=== PATIENT | female | born 1945 | race Caucasian/White ===

== ENCOUNTER 2016-08-31 08:17 | Outpatient (CLI) | payer MEDICARE, OTHER ==
[2016-08-31 12:10] LABS: ALBUMIN/GLOBULIN RATIO 1.3 (1.0-2.2); BILIRUBIN,TOTAL 0.7 mg/dL (0.2-1.0); BUN - BLOOD UREA NITROGEN 15 mg/dL (6-20); CALCIUM 9.3 mg/dL (8.5-10.3); CARBON DIOXIDE - CO2 34 mmol/L (21-32); CHLORIDE 96 mmol/L (101-111); CHOL/HDL RATIO 3.5 (<4.4); CHOLESTEROL 178 mg/dL; CREATININE 0.9 mg/dL (0.4-1.0); GFR - MDRD 62 (>89); GLUCOSE 107 mg/dL (70-100); HDL CHOLESTEROL 51 mg/dL; POTASSIUM 3.8 mmol/L (3.5-5.0); SODIUM 139 mmol/L (135-145); TOTAL PROTEIN 6.8 g/dL (6.7-8.2); TRIGLYCERIDES 117 mg/dL; VLDL CHOLESTEROL 23 mg/dL
== END 2016-08-31 08:18 | disposition home or self-care (01) ==
LOC: LAB.F 08:17
PROVIDERS: ATTEND Family Medicine
DX: E78.5 Hyperlipidemia, unspecified (principal)
CPT/HCPCS: 36415; 80053; 80061

== ENCOUNTER 2017-06-14 08:00 | Outpatient (CLI) | payer MEDICARE, OTHER ==
[2017-06-14 18:45] LABS: BASOPHILS # (AUTO) 0.1 10^3/uL (0.0-0.1); BASOPHILS % (AUTO) 0.8 %; EOSINOPHILS # (AUTO) 0.3 10^3/uL (0.0-0.7); EOSINOPHILS % (AUTO) 2.9 %; HGB - HEMOGLOBIN 13.4 g/dL (12.0-16.0); LYMPHOCYTES # (AUTO) 1.9 10^3/uL (1.5-3.5); LYMPHOCYTES % (AUTO) 17.5 %; MEAN CORPUSCULAR HEMOGLOBIN 30.8 pg (27.0-31.0); MEAN CORPUSCULAR HGB CONC 32.2 g/dL (32.0-36.0); MEAN CORPUSCULAR VOLUME 95.4 fL (81.0-99.0); MEAN PLATELET VOLUME 8.9 fL (7.9-10.8); MONOCYTES # (AUTO) 1.4 10^3/uL (0.0-1.0); NEUTROPHILS # (AUTO) 7.2 10^3/uL (1.5-6.6); NEUTROPHILS % (AUTO) 65.8 %; PLT - PLATELET COUNT 459 10^3/uL (130-450); RED BLOOD COUNT 4.34 10^6/uL (4.20-5.40); RED CELL DISTRIBUTION WIDTH 13.4 % (12.0-15.0)
== END 2017-06-14 08:01 | disposition home or self-care (01) ==
LOC: LAB.WCP 08:00
PROVIDERS: ATTEND Family Medicine
DX: I10 Essential (primary) hypertension (principal); J44.9 Chronic obstructive pulmonary disease, unspecified
CPT/HCPCS: 36415; 84443; 85025

== ENCOUNTER 2018-05-29 13:50 | Outpatient (CLI) | payer MEDICARE, OTHER ==
[2018-05-29 18:02] LABS: CHOL/HDL RATIO 3.2 (<4.4); CHOLESTEROL 184 mg/dL; HDL CHOLESTEROL 57 mg/dL; LDL CHOLESTEROL,CALCULATED 95 mg/dL; LDL/HDL RATIO 1.7 (<4.4); VLDL CHOLESTEROL 32 mg/dL
== END 2018-05-29 13:51 | disposition home or self-care (01) ==
LOC: LAB.F 13:50
PROVIDERS: ATTEND Internal Medicine Cardiovascular Disease
DX: I10 Essential (primary) hypertension (principal)
CPT/HCPCS: 36415; 80061; 83721

== ENCOUNTER 2018-08-26 09:23 | Outpatient (CLI) | payer MEDICARE, OTHER ==
[2018-08-26 18:05] LABS: BASOPHILS # (AUTO) 0.1 10^3/uL (0.0-0.1); BASOPHILS % (AUTO) 1.1 %; EOSINOPHILS # (AUTO) 0.4 10^3/uL (0.0-0.7); EOSINOPHILS % (AUTO) 3.7 %; HGB - HEMOGLOBIN 13.6 g/dL (12.0-16.0); LYMPHOCYTES # (AUTO) 1.9 10^3/uL (1.5-3.5); LYMPHOCYTES % (AUTO) 16.3 %; MEAN CORPUSCULAR HEMOGLOBIN 30.6 pg (27.0-31.0); MEAN CORPUSCULAR HGB CONC 30.1 g/dL (32.0-36.0); MEAN CORPUSCULAR VOLUME 101.8 fL (81.0-99.0); MEAN PLATELET VOLUME 11.5 fL (7.9-10.8); MONOCYTES # (AUTO) 1.4 10^3/uL (0.0-1.0); MONOCYTES % (AUTO) 11.6 %; NEUTROPHILS # (AUTO) 7.8 10^3/uL (1.5-6.6); NEUTROPHILS % (AUTO) 66.9 %; PLT - PLATELET COUNT 378 10^3/uL (130-450); RED BLOOD COUNT 4.44 10^6/uL (4.20-5.40); RED CELL DISTRIBUTION WIDTH 13.2 % (12.0-15.0); WHITE BLOOD COUNT 11.7 x10^3/uL (4.8-10.8)
[2018-08-26 18:24] LABS: BUN - BLOOD UREA NITROGEN 15 mg/dL (6-20); CALCIUM 9.2 mg/dL (8.5-10.3); CARBON DIOXIDE - CO2 28 mmol/L (21-32); CHLORIDE 99 mmol/L (101-111); CHOLESTEROL 121 mg/dL; CREATININE 0.9 mg/dL (0.4-1.0); GFR - MDRD 62 (>89); GLUCOSE 108 mg/dL (70-100); HDL CHOLESTEROL 61 mg/dL; LDL CHOLESTEROL,CALCULATED 46 mg/dL; LDL/HDL RATIO 0.8 (<4.4); SODIUM 139 mmol/L (135-145); VLDL CHOLESTEROL 14 mg/dL
== END 2018-08-26 09:24 | disposition home or self-care (01) ==
LOC: LAB.F 09:23
PROVIDERS: ATTEND Internal Medicine Cardiovascular Disease
DX: I10 Essential (primary) hypertension (principal)
CPT/HCPCS: 36415; 80048; 80061; 83721; 85025

== ENCOUNTER 2018-09-24 13:27 | Outpatient (CLI) | payer MEDICARE, OTHER ==
[2018-09-24 17:13] LABS: BASOPHILS # (AUTO) 0.1 10^3/uL (0.0-0.1); BASOPHILS % (AUTO) 0.9 %; EOSINOPHILS # (AUTO) 0.2 10^3/uL (0.0-0.7); HGB - HEMOGLOBIN 13.2 g/dL (12.0-16.0); LYMPHOCYTES # (AUTO) 2.2 10^3/uL (1.5-3.5); LYMPHOCYTES % (AUTO) 18.3 %; MEAN CORPUSCULAR HEMOGLOBIN 30.8 pg (27.0-31.0); MEAN CORPUSCULAR HGB CONC 30.6 g/dL (32.0-36.0); MEAN CORPUSCULAR VOLUME 100.7 fL (81.0-99.0); MEAN PLATELET VOLUME 11.8 fL (7.9-10.8); MONOCYTES # (AUTO) 1.1 10^3/uL (0.0-1.0); MONOCYTES % (AUTO) 9.7 %; NEUTROPHILS # (AUTO) 8.1 10^3/uL (1.5-6.6); NEUTROPHILS % (AUTO) 68.7 %; PLT - PLATELET COUNT 339 10^3/uL (130-450); RED BLOOD COUNT 4.29 10^6/uL (4.20-5.40); RED CELL DISTRIBUTION WIDTH 13.5 % (12.0-15.0); WHITE BLOOD COUNT 11.8 x10^3/uL (4.8-10.8)
== END 2018-09-24 13:28 | disposition home or self-care (01) ==
LOC: LAB.S 13:27
PROVIDERS: ATTEND Family Medicine
DX: R68.89 Other general symptoms and signs (principal); R79.89 Other specified abnormal findings of blood chemistry
CPT/HCPCS: 36415; 85025

== ENCOUNTER 2018-11-04 14:18 | Outpatient (CLI) | payer MEDICARE, OTHER ==
--- NOTE | 2018-11-05 08:52 | DEXA Report ---
Reason: POST MENOPAUSAL STATUS Procedure Date: 11/04/2018 Accession Number: [id number] / [id number] Procedure: DEX - Dexa Spine and/or Hip CPT Code: FULL RESULT: EXAM: Dexa Spine and/or Hip, Dexa Forearm DATE: 11/04/2018 3:33 PM CLINICAL HISTORY: POST MENOPAUSAL STATUS TECHNIQUE: Dual energy x-ray absorptiometry (DXA) was performed on a [employer] System. Regions measured are the AP Spine, femoral neck, and if needed forearm. COMPARISON: None. In accordance with the International Society for Clinical Densitometry (ISCD) guidelines, data from previous exams may be reanalyzed using current recommendations and techniques. This is done to allow a more accurate basis for comparison with the current study. FINDINGS: The data for the lumbar spine is as follows: BMD (g/cm/cm) T-SCORE Z-SCORE REGION L1 1.151 0.2 1.8 L2 1.425 1.9 3.5 L3 1.772 4.8 6.3 L4 1.354 1.3 2.9 TOTAL 1.429 2.1 3.7 NOTE: All evaluable vertebrae are used for classification The data for the hip is as follows: BMD (g/cm/cm) T-SCORE Z-SCORE REGION Neck 0.779 -1.9 -0.1 TOTAL 0.822 -1.5 0.1 NOTE: The femoral neck or total proximal femur, whichever is lowest, is used for classification. The data for the left forearm is as follows: BMD (g/cm/cm) T-SCORE Z-SCORE REGION 1/3 0.771 -1.2 0.9 NOTE: The 33% radius of the nondominant forearm is used for classification. IMPRESSION: THE WHO CLASSIFICATION BASED ON THE INTERNATIONAL REFERENCE STANDARD IS OSTEOPENIA. THE FRACTURE RISK IS INCREASED. RECOMMENDATION: Patients with diagnosis of osteoporosis or osteopenia should have regular bone mineral density assessment. For those eligible for Medicare, routine testing is allowed once every 2 years. Testing frequency can be increased for patients who have rapidly progressing disease or for those who are receiving medical therapy to restore bone mass. COMMENT: World Health Organization (WHO) definitions for osteoporosis and osteopenia: NORMAL BMD: T-score at -1.0 or higher, fracture risk is low OSTEOPENIA BMD: T-score between -1.0 and -2.5, fracture risk is increased. OSTEOPOROSIS BMD: T-score at -2.5 or lower, fracture risk is high. National Osteoporosis Foundation recommends: 1. Obtain adequate dietary calcium (at least 1200 mg per day) and vitamin D (400-800 international units per day). 2. Participate, as appropriate, in regular weightbearing and muscle-strengthening exercise. 3. Avoid tobacco use and reduce alcohol and caffeine intake. 4. For more detailed information see the website at www.NOF.org.
--- NOTE | 2018-11-05 08:52 | DEXA Report ---
Reason: post manopausal status Procedure Date: 11/04/2018 Accession Number: [id number] / [id number] Procedure: DEX - Dexa Forearm CPT Code: FULL RESULT: EXAM: Dexa Spine and/or Hip, Dexa Forearm DATE: 11/04/2018 3:33 PM CLINICAL HISTORY: POST MENOPAUSAL STATUS TECHNIQUE: Dual energy x-ray absorptiometry (DXA) was performed on a [employer] System. Regions measured are the AP Spine, femoral neck, and if needed forearm. COMPARISON: None. In accordance with the International Society for Clinical Densitometry (ISCD) guidelines, data from previous exams may be reanalyzed using current recommendations and techniques. This is done to allow a more accurate basis for comparison with the current study. FINDINGS: The data for the lumbar spine is as follows: BMD (g/cm/cm) T-SCORE Z-SCORE REGION L1 1.151 0.2 1.8 L2 1.425 1.9 3.5 L3 1.772 4.8 6.3 L4 1.354 1.3 2.9 TOTAL 1.429 2.1 3.7 NOTE: All evaluable vertebrae are used for classification The data for the hip is as follows: BMD (g/cm/cm) T-SCORE Z-SCORE REGION Neck 0.779 -1.9 -0.1 TOTAL 0.822 -1.5 0.1 NOTE: The femoral neck or total proximal femur, whichever is lowest, is used for classification. The data for the left forearm is as follows: BMD (g/cm/cm) T-SCORE Z-SCORE REGION 1/3 0.771 -1.2 0.9 NOTE: The 33% radius of the nondominant forearm is used for classification. IMPRESSION: THE WHO CLASSIFICATION BASED ON THE INTERNATIONAL REFERENCE STANDARD IS OSTEOPENIA. THE FRACTURE RISK IS INCREASED. RECOMMENDATION: Patients with diagnosis of osteoporosis or osteopenia should have regular bone mineral density assessment. For those eligible for Medicare, routine testing is allowed once every 2 years. Testing frequency can be increased for patients who have rapidly progressing disease or for those who are receiving medical therapy to restore bone mass. COMMENT: World Health Organization (WHO) definitions for osteoporosis and osteopenia: NORMAL BMD: T-score at -1.0 or higher, fracture risk is low OSTEOPENIA BMD: T-score between -1.0 and -2.5, fracture risk is increased. OSTEOPOROSIS BMD: T-score at -2.5 or lower, fracture risk is high. National Osteoporosis Foundation recommends: 1. Obtain adequate dietary calcium (at least 1200 mg per day) and vitamin D (400-800 international units per day). 2. Participate, as appropriate, in regular weightbearing and muscle-strengthening exercise. 3. Avoid tobacco use and reduce alcohol and caffeine intake. 4. For more detailed information see the website at www.NOF.org.
== END 2018-11-04 14:19 | disposition home or self-care (01) ==
LOC: DI 14:18
PROVIDERS: ATTEND Family Medicine
DX: M85.89 Other specified disorders of bone density and structure, multiple sites (principal); Z78.0 Asymptomatic menopausal state
CPT/HCPCS: 77080; 77081

== ENCOUNTER 2018-12-09 09:36 | Outpatient (CLI) | payer MEDICARE, OTHER ==
[2018-12-09 10:05] LABS: BASOPHILS # (AUTO) 0.1 10^3/uL (0.0-0.1); BASOPHILS % (AUTO) 0.9 %; CALCIUM 9.5 mg/dL (8.5-10.3); CREATININE 0.9 mg/dL (0.4-1.0); EOSINOPHILS # (AUTO) 0.2 10^3/uL (0.0-0.7); LYMPHOCYTES # (AUTO) 1.8 10^3/uL (1.5-3.5); MEAN CORPUSCULAR HEMOGLOBIN 31.6 pg (27.0-31.0); MEAN CORPUSCULAR HGB CONC 32.3 g/dL (32.0-36.0); MEAN CORPUSCULAR VOLUME 97.9 fL (81.0-99.0); MEAN PLATELET VOLUME 10.8 fL (7.9-10.8); MONOCYTES # (AUTO) 1.3 10^3/uL (0.0-1.0); MONOCYTES % (AUTO) 11.3 %; NEUTROPHILS # (AUTO) 7.9 10^3/uL (1.5-6.6); NEUTROPHILS % (AUTO) 69.2 %; PLT - PLATELET COUNT 347 10^3/uL (130-450); RED BLOOD COUNT 4.75 10^6/uL (4.20-5.40); RED CELL DISTRIBUTION WIDTH 13.8 % (12.0-15.0); WHITE BLOOD COUNT 11.4 x10^3/uL (4.8-10.8)
== END 2018-12-09 09:37 | disposition home or self-care (01) ==
LOC: LAB 09:36
PROVIDERS: ATTEND Internal Medicine Cardiovascular Disease
DX: I48.0 Paroxysmal atrial fibrillation (principal)
CPT/HCPCS: 36415; 80048; 85025

== ENCOUNTER 2019-10-14 08:00 | Outpatient (CLI) | payer MEDICARE, OTHER ==
[2019-10-14 11:38] LABS: ABNORMAL LYMPHS % (MANUAL) 0 %; BAND NEUTROPHILS % (MANUAL) 0 %
[2019-10-14 18:25] LABS: BASOPHILS % (AUTO) 0.8 %; EOSINOPHILS % (AUTO) 1.4 %; HGB - HEMOGLOBIN 14.9 g/dL (12.0-16.0); LYMPHOCYTES % (AUTO) 13.7 %; MEAN CORPUSCULAR HEMOGLOBIN 31.5 pg (27.0-31.0); MEAN CORPUSCULAR VOLUME 101.7 fL (81.0-99.0); MEAN PLATELET VOLUME 11.1 fL (7.9-10.8); MONOCYTES % (AUTO) 9.2 %; NEUTROPHILS % (AUTO) 74.4 %; PLT - PLATELET COUNT 394 10^3/uL (130-450); RED BLOOD COUNT 4.73 10^6/uL (4.20-5.40); RED CELL DISTRIBUTION WIDTH 13.2 % (12.0-15.0)
[2019-10-14 19:05] LABS: ALBUMIN 4.4 g/dL (3.2-5.5); ALBUMIN/GLOBULIN RATIO 1.4 (1.0-2.2); ALKALINE PHOSPHATASE 78 IU/L (42-121); ALT ALANINE AMINOTRANSFERASE 11 IU/L (10-60); AST ASPARTATE AMINOTRANSFERASE 15 IU/L (10-42); BILIRUBIN,TOTAL 0.3 mg/dL (0.2-1.0); BUN - BLOOD UREA NITROGEN 15 mg/dL (6-20); CALCIUM 9.6 mg/dL (8.5-10.3); CARBON DIOXIDE - CO2 32 mmol/L (21-32); CHLORIDE 100 mmol/L (101-111); CHOLESTEROL 134 mg/dL; CREATININE 0.8 mg/dL (0.4-1.0); GLUCOSE 103 mg/dL (70-100); HDL CHOLESTEROL 67 mg/dL; LDL CHOLESTEROL,CALCULATED 50 mg/dL; LDL/HDL RATIO 0.7 (<4.4); SODIUM 139 mmol/L (135-145); TOTAL PROTEIN 7.6 g/dL (6.7-8.2); VLDL CHOLESTEROL 17 mg/dL
[2019-10-14 20:56] LABS: LYMPHOCYTES % (MANUAL) 15 %
[2019-10-14 20:59] LABS: BASOPHILS # (MANUAL) 0.1 10^3/uL (0-0.1); BASOPHILS % (MANUAL) 1 %; EOSINOPHILS # (MANUAL) 0.2 10^3/uL (0-0.7); LYMPHOCYTES # (MANUAL) 1.8 10^3/uL (1.5-3.5); MONOCYTES # (MANUAL) 0.8 10^3/uL (0.0-1.0)
[2019-10-14 21:18] LABS: PLATELET MORPHOLOGY NORMAL APPEARANCE (NORMAL); RBC MORPHOLOGY (MULTIPLE) 1+ ANISOCYTOSIS (NORMAL)
[2019-10-14 21:19] LABS: DIFFERENTIAL COMMENT MANUAL DIFFERENTIAL; PLATELET ESTIMATE, MANUAL NORMAL (130-450,000) (NORMAL)
[2019-10-14 21:25] LABS: WHITE BLOOD COUNT 11.8 x10^3/uL (4.8-10.8)
== END 2019-10-14 23:59 | disposition home or self-care (01) ==
LOC: LAB.WCP 08:00
PROVIDERS: ATTEND Family Medicine
DX: I48.0 Paroxysmal atrial fibrillation (principal); E78.5 Hyperlipidemia, unspecified; R79.9 Abnormal finding of blood chemistry, unspecified
CPT/HCPCS: 36415; 80053; 80061; 83721; 85025

== ENCOUNTER 2019-11-19 11:21 | Outpatient (CLI) | payer MEDICARE, OTHER ==
--- NOTE | 2019-11-19 16:13 | XRAY Report ---
PROCEDURE: Knee 3 View BILAT INDICATIONS: OSTEOARTHRITIS, KNEES, BILATERAL TECHNIQUE: 4 views of the bilateral knee(s) were acquired. COMPARISON: None. FINDINGS: Bones: No fractures or dislocations. Severe right lateral femoral tibial compartment osteoarthritis is seen. Moderate left lateral femoral tibial compartment osteoarthritic changes also seen. Mild bila teral medial femoral tibial compartment osteoarthritis is also noted. No significant patellar subluxa tion. No suspicious bony lesions. Soft tissues: Moderate right suprapatellar joint effusion is seen. No suspicious soft tissue calcific ations. IMPRESSION: 1. Severe right lateral femoral tibial compartment osteoarthritis and moderate left lateral femoral t ibial compartment osteoarthritis. Mild bilateral medial femoral tibial compartment osteoarthritis. 2. Moderate right suprapatellar joint effusion. No fracture or dislocation. Reviewed by: Dada Gee MD on 11/19/2019 4:11 PM PDT Approved by: Dada Gee MD on 11/19/2019 4:11 PM PDT Station ID: [id number]
== END 2019-11-19 11:22 | disposition home or self-care (01) ==
LOC: DI 11:21
PROVIDERS: ATTEND Physician Assistant
DX: M17.0 Bilateral primary osteoarthritis of knee (principal); M25.461 Effusion, right knee

== ENCOUNTER 2019-12-24 09:21 | Outpatient (CLI) | payer MEDICARE, OTHER ==
[2019-12-24 15:34] LABS: BASOPHILS # (AUTO) 0.1 10^3/uL (0.0-0.1); EOSINOPHILS # (AUTO) 0.2 10^3/uL (0.0-0.7); HGB - HEMOGLOBIN 14.9 g/dL (12.0-16.0); LYMPHOCYTES # (AUTO) 1.5 10^3/uL (1.5-3.5); LYMPHOCYTES % (AUTO) 13.3 %; MEAN CORPUSCULAR HGB CONC 30.8 g/dL (32.0-36.0); MEAN CORPUSCULAR VOLUME 103.9 fL (81.0-99.0); MEAN PLATELET VOLUME 11.1 fL (7.9-10.8); MONOCYTES # (AUTO) 1.3 10^3/uL (0.0-1.0); MONOCYTES % (AUTO) 11.2 %; NEUTROPHILS # (AUTO) 8.1 10^3/uL (1.5-6.6); PLT - PLATELET COUNT 358 10^3/uL (130-450); RED BLOOD COUNT 4.65 10^6/uL (4.20-5.40); RED CELL DISTRIBUTION WIDTH 13.6 % (12.0-15.0); WHITE BLOOD COUNT 11.2 x10^3/uL (4.8-10.8)
[2019-12-24 15:54] LABS: BUN - BLOOD UREA NITROGEN 17 mg/dL (6-20); CALCIUM 9.5 mg/dL (8.5-10.3); CARBON DIOXIDE - CO2 36 mmol/L (21-32); CHLORIDE 95 mmol/L (101-111); CHOL/HDL RATIO 2.4 (<4.4); CHOLESTEROL 120 mg/dL; GLUCOSE 118 mg/dL (70-100); HDL CHOLESTEROL 51 mg/dL; LDL CHOLESTEROL,CALCULATED 51 mg/dL; SODIUM 141 mmol/L (135-145); VLDL CHOLESTEROL 18 mg/dL
== END 2019-12-24 09:22 | disposition home or self-care (01) ==
LOC: LAB.S 09:21
PROVIDERS: ATTEND Internal Medicine Cardiovascular Disease
DX: I10 Essential (primary) hypertension (principal)
CPT/HCPCS: 36415; 80048; 80061; 83721; 85025

== ENCOUNTER 2021-02-09 09:18 | Outpatient (CLI) | payer MEDICARE, OTHER ==
[2021-02-09 09:43] LABS: BASOPHILS # (AUTO) 0.1 10^3/uL (0.0-0.1); BASOPHILS % (AUTO) 0.9 %; EOSINOPHILS # (AUTO) 0.3 10^3/uL (0.0-0.7); EOSINOPHILS % (AUTO) 2.1 %; HCT - HEMATOCRIT 48.1 % (37.0-47.0); HGB - HEMOGLOBIN 15.3 g/dL (12.0-16.0); LYMPHOCYTES # (AUTO) 2.1 10^3/uL (1.5-3.5); LYMPHOCYTES % (AUTO) 15.7 %; MEAN CORPUSCULAR HEMOGLOBIN 32.8 pg (27.0-31.0); MEAN CORPUSCULAR HGB CONC 31.8 g/dL (32.0-36.0); MEAN CORPUSCULAR VOLUME 103.2 fL (81.0-99.0); MEAN PLATELET VOLUME 10.3 fL (7.9-10.8); MONOCYTES # (AUTO) 1.4 10^3/uL (0.0-1.0); MONOCYTES % (AUTO) 10.6 %; NEUTROPHILS # (AUTO) 9.2 10^3/uL (1.5-6.6); NEUTROPHILS % (AUTO) 70.4 %; PLT - PLATELET COUNT 403 10^3/uL (130-450); RED BLOOD COUNT 4.66 10^6/uL (4.20-5.40); RED CELL DISTRIBUTION WIDTH 12.7 % (12.0-15.0)
[2021-02-09 10:01] LABS: BUN - BLOOD UREA NITROGEN 19 mg/dL (6-20); CALCIUM 9.6 mg/dL (8.5-10.3); CARBON DIOXIDE - CO2 36 mmol/L (21-32); CHLORIDE 95 mmol/L (101-111); CHOL/HDL RATIO 2.2 (<4.4); CHOLESTEROL 123 mg/dL; CREATININE 0.9 mg/dL (0.4-1.0); GFR - MDRD 61 (>89); GLUCOSE 131 mg/dL (70-100); HDL CHOLESTEROL 55 mg/dL; LDL CHOLESTEROL,CALCULATED 48 mg/dL; LDL/HDL RATIO 0.9 (<4.4); POTASSIUM 4.1 mmol/L (3.5-5.0); SODIUM 142 mmol/L (135-145); TRIGLYCERIDES 99 mg/dL; VLDL CHOLESTEROL 20 mg/dL
== END 2021-02-09 09:19 | disposition home or self-care (01) ==
LOC: LAB 09:18
PROVIDERS: ATTEND Internal Medicine Cardiovascular Disease
DX: I10 Essential (primary) hypertension (principal); E78.5 Hyperlipidemia, unspecified
CPT/HCPCS: 36415; 80048; 80061; 83721; 85025

== ENCOUNTER 2022-11-28 11:46 | Inpatient (IN) | payer MEDICARE, OTHER ==
--- NOTE | 2022-11-28 11:58 | ED Physician Documentation ---
History of Present Illness - Stated complaint Stated Complaint: AMS/ SOA - Additonal information Additional information: 77-year-old female is brought to the emergency department for evaluation of altered mental status. Reportedly lives independently. Her son checks on her every 2 days. Her son saw her yesterday evening and said that she was not looking well and stated that she had fallen. He checked on her this morning and found that she was even worse. At that time he noted that she was listing to the left side, she had garbled speech and her left arm did not appear to be working. He reports to me he had a hard time calling EMS but his mom is a full DO NOT RESUSCITATE. No intubation, no CPR's and in the event of a serious massive stroke no transfer or neurosurgeryat her house he reported that she stated she had fallen. No formal POLST is in place Past medical history appears to be most significant for hypertension, A-fib and COPD. Med list includes Eliquis, metoprolol, diltiazem, fluticasone and albuterol inhalers. EMS reports that on scene the patient was alert and talking though appeared to be moving her left side abnormally and listing to the left side. Blood glucose was 163. By the time she presented to the emergency department she is now non verbal. Left upper extremity appears to be contracted or posturing. no obvious facial droop, though there is bruising on left face. She is protecting her airway. Room air sats 99% on 4 L nasal cannula. No respiratory distress. Review of Systems Unable to obtain: Other PD PAST MEDICAL HISTORY - Present Medications Home Medications: Ambulatory Orders Medication Instructions Recorded Confirmed Apixaban [Eliquis] 5 mg PO BID 11/28/22 Metoprolol/Hydrochlorothiazide 100 mg PO BID 11/28/22 [Metoprolol-Hctz 100-50 mg Tab] dilTIAZem HCL [Diltiazem 24Hr ER] 240 mg PO DAILY 11/28/22 - Allergies Allergies/Adverse Reactions: Allergies Allergy/AdvReac Type Severity Reaction Status Date / Time No Known Drug Allergies Allergy Verified 11/28/22 12:06 PD ED PE EXPANDED - General General: Disheveled, poorly kept, Lethargic - Eyes Eyes: PERRL, Other (bruising left face) - Cardiac Cardiac: Irregularly irregular, Murmur Present, Prolonged cap refill (4), Other (cool extremities 1+ pulses X4 extremities) - Respiratory Respiratory: No: Clear to ausultation eduardo, Distress, Labored - Abdomen Abdomen: No: Tender to palpation - Derm Derm: Normal color, Warm and dry, Bruising (left face) - Neuro Neuro: Other (eyes open, + gag. Localizes with right arm; left arm contracted ? decorticate posturing. absent speech; no obvious facial droop) - GCS Eye Opening: Spontaneous Motor: Localizes to Pain Verbal: None Total: 10 Results - Vitals Vitals: Vital Signs - 24 hr 11/28/22 11/28/22 11/28/22 11:55 12:05 13:05 Temperature 36.3 C L Heart Rate 109 H 75 70 Respiratory 22 24 Rate Blood Pressure 144/64 H 132/53 H O2 Saturation 99 98 If not protocol 4 : Oxygen Flow, liters/minute 11/28/22 11/28/22 13:10 13:25 Temperature Heart Rate 69 68 Respiratory 21 Rate Blood Pressure 148/62 H O2 Saturation 77 L 100 If not protocol 4 15 : Oxygen Flow, liters/minute Oxygen O2 Source Non-rebreather mask - EKG (time done) 1310 EKG releavant findings:: EKG personally interpreted by author of this note. Relevant findings are: Rate: Rate (enter#) (69) Rhythm: Atrial fibrillation [place]: RAD Intervals: No: Prolonged QT Ischemia: Non specific changes Compare to prior EKG: Old EKG unavailable Computer interpretation: Agree with computer - Labs Labs: Laboratory Tests 11/28/22 11/28/22 11/28/22 12:15 12:15 12:15 WBC RBC Hgb Hct MCV MCH MCHC RDW Plt Count MPV Neut # (Auto) Lymph # (Auto) [place] # (Auto) Eos # (Auto) Baso # (Auto) Absolute Nucleated RBC Nucleated RBC % PT 11.1 INR 1.0 Bld Gas Analysis Time Sample Site ABG pH ABG pCO2 ABG pO2 ABG HCO3 ABG Total CO2 ABG O2 Saturation ABG Base Excess [place]ñito Test O2 Delivery Device O2 Liters/Min Sodium 144 Potassium 4.2 Chloride 98 L Carbon Dioxide 41 H* Anion Gap 5.0 L BUN 37 H Creatinine 1.2 Estimated GFR (MDRD) 44 L Glucose 176 H Lactic Acid Calcium 9.3 Phosphorus 5.9 H Magnesium 2.3 Total Bilirubin 0.3 AST 80 H ALT 138 H Alkaline Phosphatase 171 H Total Protein 6.9 Albumin 4.1 Globulin 2.8 Albumin/Globulin Ratio 1.5 Lipase 10 L Urine Color Urine Clarity Urine pH Ur Specific [place] Urine Protein Urine Glucose (UA) Urine Ketones Urine Occult Blood Urine Nitrite Urine Bilirubin Urine Urobilinogen Ur Leukocyte Esterase Urine RBC Urine WBC Ur Squamous Epith Cells Urine Bacteria Urine Casts Ur Microscopic Review Urine Culture Comments Urine Opiates Screen Ur Oxycodone Screen Urine Methadone Screen Ur Propoxyphene Screen Ur Barbiturates Screen Ur Tricyclics Screen Ur Phencyclidine Scrn Ur Amphetamine Screen U Methamphetamines Scrn U Benzodiazepines Scrn Urine Cocaine Screen U Cannabinoids Screen 11/28/22 11/28/22 11/28/22 12:20 12:21 13:26 WBC 13.1 H RBC 4.69 Hgb 15.0 Hct 51.6 H MCV 110.0 H MCH 32.0 H MCHC 29.1 L RDW 14.0 Plt Count 348 MPV 10.4 Neut # (Auto) 11.1 H Lymph # (Auto) 0.6 L [place] # (Auto) 1.2 H Eos # (Auto) 0.0 Baso # (Auto) 0.1 Absolute Nucleated RBC 0.02 Nucleated RBC % 0.2 PT INR Bld Gas Analysis Time Sample Site ABG pH ABG pCO2 ABG pO2 ABG HCO3 ABG Total CO2 ABG O2 Saturation ABG Base Excess [place] Test O2 Delivery Device O2 Liters/Min Sodium Potassium Chloride Carbon Dioxide Anion Gap BUN Creatinine Estimated GFR (MDRD) Glucose Lactic Acid 1.9 Calcium Phosphorus Magnesium Total Bilirubin AST ALT Alkaline Phosphatase Total Protein Albumin Globulin Albumin/Globulin Ratio Lipase Urine Color YELLOW Urine Clarity CLEAR Urine pH 5.0 Ur Specific [place] >=1.030 H Urine Protein 100 H Urine Glucose (UA) NEGATIVE Urine Ketones NEGATIVE Urine Occult Blood NEGATIVE Urine Nitrite NEGATIVE Urine Bilirubin NEGATIVE Urine Urobilinogen 1 (NORMAL) Ur Leukocyte Esterase NEGATIVE Urine RBC None Seen Urine WBC 0-3 Ur Squamous Epith Cells RARE Squamous Urine Bacteria Rare Urine Casts 0-2 Hyaline Casts Ur Microscopic Review INDICATED Urine Culture Comments NOT INDICATED Urine Opiates Screen NEGATIVE Ur Oxycodone Screen NEGATIVE Urine Methadone Screen NEGATIVE Ur Propoxyphene Screen NEGATIVE Ur Barbiturates Screen NEGATIVE Ur Tricyclics Screen NEGATIVE Ur Phencyclidine Scrn NEGATIVE Ur Amphetamine Screen NEGATIVE U Methamphetamines Scrn NEGATIVE U Benzodiazepines Scrn NEGATIVE Urine Cocaine Screen NEGATIVE U Cannabinoids Screen NEGATIVE 11/28/22 13:40 WBC RBC Hgb Hct MCV MCH MCHC RDW Plt Count MPV Neut # (Auto) Lymph # (Auto) [place] # (Auto) Eos # (Auto) Baso # (Auto) Absolute Nucleated RBC Nucleated RBC % PT INR Bld Gas Analysis Time 1351 Sample Site LEFT RADIAL ABG pH 7.10 L* ABG pCO2 147 H* ABG pO2 223 H* ABG HCO3 44.8 H ABG Total CO2 49.3 H* ABG O2 Saturation 99 H ABG Base Excess 9.1 H [place] Test POSITIVE O2 Delivery Device NON REBREATHER MASK O2 Liters/Min 15.00 Sodium Potassium Chloride Carbon Dioxide Anion Gap BUN Creatinine Estimated GFR (MDRD) Glucose Lactic Acid Calcium Phosphorus Magnesium Total Bilirubin AST ALT Alkaline Phosphatase Total Protein Albumin Globulin Albumin/Globulin Ratio Lipase Urine Color Urine Clarity Urine pH Ur Specific [place] Urine Protein Urine Glucose (UA) Urine Ketones Urine Occult Blood Urine Nitrite Urine Bilirubin Urine Urobilinogen Ur Leukocyte Esterase Urine RBC Urine WBC Ur Squamous Epith Cells Urine Bacteria Urine Casts Ur Microscopic Review Urine Culture Comments Urine Opiates Screen Ur Oxycodone Screen Urine Methadone Screen Ur Propoxyphene Screen Ur Barbiturates Screen Ur Tricyclics Screen Ur Phencyclidine Scrn Ur Amphetamine Screen U Methamphetamines Scrn U Benzodiazepines Scrn Urine Cocaine Screen U Cannabinoids Screen - Rads (name of study) cervical ct Relevant Findings:: Final report received (No displaced fracture or traumatic subluxation) Ct head Relevant Findings:: Final report received (Trace intraparenchymal focus of hyperattenuation within the right temporal lobe. Findings probably represent a vascular calcification less likely focus of hemorrhage given location. Consider 4 to 6-hour follow-up with CT.) cxr Relevant Findings:: Final report received (Mild congestive heart failure) PD Medical Decision Making - ED course Complexity details: reviewed results, re-evaluated patient, d/w patient, d/w family ED course: 77-year-old female is brought to the emergency department for evaluation of altered mental status. The patient was last known normal on Saturday evening. When patient's son checked on her yesterday she reported that she had fallen. At that time the son reports that she did not seem normal and may not have been moving her left side well. When he rechecked on her this morning she was even more altered and had difficulty speaking thus she was transported to the ER. On she does have a history of atrial fib on Eliquis as well as hypertension and COPD. Presentation the emergency department she opens her eyes but will not follow commands. She does localize strongly with the right arm. The left arm remains in flexion or perhaps decorticate posturing but with extremely noxious stimuli such as suctioning she will attempt to grab the suction catheter. She presented here afebrile. Heart rate was A-fib rate of 68. We will 48/62 was her blood pressure. Her saturations were on 4 L nasal cannula saturating 100%. I did obtain CBC electrolytes. Per my interpretation mild leukocytosis white count of 13,000. Normal hemoglobin. Her electrolytes revealed a sodium of 144 and a K of 4.2. Her carbon dioxide was elevated at 41. BUN of 37 and a creatinine of 1.2 historically her BUN and creatinine are normal at 15 and 0.9. She does have some AST ALT abnormalities with AST 138 and ALT of 171. Bilirubin is not elevated. Lipase is normal. UA shows no signs of infection. MUDS was negative Her ABG reveals pH of 7.1 with a CO2 of 144. PaO2 is 226. This was obtained on nonrebreather. Given the CO2 retention she will be started on BiPAP. CT of the head showed no acute findings though there was question of a right temporal calcification that could be a vascular calcification less likely bleed. CT of the cervical spine was negative. Chest x-ray suggested some mild heart failure. An MRI has been ordered for follow-up of what I believed to be an acute stroke. Unfortunately given the patient's need for BiPAP this will not be able to be completed until she has been weaned from the BiPAP. However her son has reiterated to me that he wishes for his mom to be a DO NOT RESUSCITATE, no transfer, no intubation and no CPR. Subsequently it appears that this 77-year-old lady has a history of hypertension A-fib anticoagulated on Eliquis has acutely altered mental status and metabolic encephalopathy that may be due to CVA and/or CO2 retention. I spoke with Dr. Melissa Richard who will admit her to the ICU. 1415: About 5 minutes after the patient had BiPAP placed she became suddenly awake moving all extremities normally with no focal deficits. This was communicated with Dr. Richard Departure - Departure Disposition: 66 [facility] DC/Xfer Clinical Impression: AMS (altered mental status), History of atrial fibrillation, Elevated carbon dioxide level, History of COPD, Stroke-like symptom Discharge Date/Time: 11/28/22 16:14
--- NOTE | 2022-11-28 12:30 | XRAY Report ---
PROCEDURE: Chest 1 View X-Ray INDICATIONS: chest pain TECHNIQUE: One view of the chest was acquired. COMPARISON: 09/09/2013. FINDINGS: Surgical changes and devices: None. Lungs and pleura: No pleural effusions or pneumothorax. Mild interstitial pulmonary edema. Mediastinum: Mediastinal contours appear normal. Cardiomegaly Bones and chest wall: No suspicious bony lesions. Overlying soft tissues appear unremarkable. IMPRESSION: Mild congestive heart failure. Reviewed by: Peter Perry MD on 11/28/2022 12:29 PM PDT Approved by: Peter Perry MD on 11/28/2022 12:29 PM PDT Station ID: [id number]
[2022-11-28 12:33] LABS: PT - PROTHROMBIN TIME 11.1 secs (9.9-12.6)
[2022-11-28 12:37] LABS: ALBUMIN 4.1 g/dL (3.2-5.5)
[2022-11-28 12:44] LABS: BASOPHILS # (AUTO) 0.1 10^3/uL (0.0-0.1); BASOPHILS % (AUTO) 0.5 %; HCT - HEMATOCRIT 51.6 % (37.0-47.0); LYMPHOCYTES # (AUTO) 0.6 10^3/uL (1.5-3.5); LYMPHOCYTES % (AUTO) 4.5 %; MEAN CORPUSCULAR HGB CONC 29.1 g/dL (32.0-36.0); MEAN PLATELET VOLUME 10.4 fL (7.9-10.8); MONOCYTES # (AUTO) 1.2 10^3/uL (0.0-1.0); MONOCYTES % (AUTO) 9.5 %; NEUTROPHILS # (AUTO) 11.1 10^3/uL (1.5-6.6); NEUTROPHILS % (AUTO) 84.8 %; NRBC ABSOLUTE COUNT (AUTO) 0.02 x10^3/uL; NUCLEATED RED BLOOD CELLS AUTO 0.2 /100WBC; PLT - PLATELET COUNT 348 10^3/uL (130-450); RED BLOOD COUNT 4.69 10^6/uL (4.20-5.40); WHITE BLOOD COUNT 13.1 x10^3/uL (4.8-10.8)
[2022-11-28 12:46] LABS: POTASSIUM 4.2 mmol/L (3.5-4.5)
[2022-11-28 12:56] LABS: ALBUMIN/GLOBULIN RATIO 1.5 (1.0-2.2); BILIRUBIN,TOTAL 0.3 mg/dL (0.2-1.0); CALCIUM 9.3 mg/dL (8.5-10.3); CREATININE 1.2 mg/dL (0.6-1.3); TOTAL PROTEIN 6.9 g/dL (6.4-8.9)
[2022-11-28 13:34] LABS: MUDS CUTOFF CONCENTRATIONS CUTOFF CONC BELOW:
[2022-11-28 13:40] LABS: BILIRUBIN,URINE NEGATIVE (NEGATIVE); GLUCOSE, URINE (UA) NEGATIVE (NEGATIVE); KETONES,URINE (UA) NEGATIVE (NEGATIVE); LEUKOCYTE ESTERASE, URINE NEGATIVE (NEGATIVE); NITRITE,URINE NEGATIVE (NEGATIVE); OCCULT BLOOD,URINE NEGATIVE (NEGATIVE); PROTEIN,URINE 100 mg/dL (NEGATIVE); UROBILINOGEN,URINE 1 (NORMAL) E.U./dL (NORMAL)
[2022-11-28 13:51] LABS: ABG BASE EXCESS 9.1 mmol/L (-2.0-3.0); ABG HCO3 44.8 mmol/L (22.0-26.0)
[2022-11-28 13:52] LABS: ABG OXYGEN SATURATION 99 % (94-98); ALLEN TEST POSITIVE
[2022-11-28 13:55] LABS: ABG PCO2 147 mmHg (34-45); ABG PO2 223 mmHg (80-100); ABG TCO2 49.3 MMOL/L (21.0-29.0)
[2022-11-28 13:57] LABS: CLARITY,URINE CLEAR (CLEAR)
[2022-11-28] MEDS ORDERED: ONDANSETRON 4 MG/2 ML VIAL IVP PRN (14:00)
[2022-11-28] MEDS ORDERED: SODIUM CHLORIDE FLUSH 0.9% 10 ML SYRINGE IVP PRN (14:00)
[2022-11-28] MEDS ORDERED: ONDANSETRON ODT 4 MG TABLET TL PRN (14:00)
[2022-11-28 14:02] LABS: AMPHETAMINE SCREEN,URINE NEGATIVE (NEGATIVE); BACTERIA,URINE Rare /HPF (None Seen); BARBITURATE SCREEN,UR NEGATIVE (NEGATIVE); BENZODIAZEPINES SCREEN, URINE NEGATIVE (NEGATIVE); CASTS, URINE 0-2 Hyaline Casts /LPF; COCAINE SCREEN URINE NEGATIVE (NEGATIVE); METHADONE SCREEN, URINE NEGATIVE (NEGATIVE); METHAMPHETAMINES SCREEN, URINE NEGATIVE (NEGATIVE); OPIATE SCREEN, URINE NEGATIVE (NEGATIVE); OXYCODONE SCREEN, URINE NEGATIVE (NEGATIVE); PROPOXYPHENE SCREEN, URINE NEGATIVE (NEGATIVE); RBC,URINE None Seen /HPF (0-5); SQUAMOUS EPITHELIAL CELL,UR RARE Squamous (<= Few); THC CANNABINOID SCREEN, URINE NEGATIVE (NEGATIVE); TRICYCLIC ANTIDEPRESSANT,URINE NEGATIVE (NEGATIVE); WBC,URINE 0-3 /HPF (0-5)
--- NOTE | 2022-11-28 14:02 | CT Report ---
PROCEDURE: CERVICAL SPINE WO INDICATIONS: glf 2 days TECHNIQUE: Noncontrast 3 mm thick sections acquired from the skull base to the T4 level. Sagittal and coronal r eformats were then constructed. For radiation dose reduction, the following was used: automated exp osure control, adjustment of mA and/or kV according to patient size. COMPARISON: None. FINDINGS: Image quality: Mildly suboptimal due to motion artifact. Bones: No fractures or dislocations. Visualized superior ribs are intact. Moderate disc height los s at C4-5, C5-6, C6-7. Grade 1 anterolisthesis of C3 on C4 secondary to facet arthrosis. Multilevel f acet arthrosis. Soft tissues: Prevertebral soft tissues are normal in thickness. No paravertebral hematomas. No ap ical pneumothoraces. Moderate centrilobular emphysema. IMPRESSION: Moderately suboptimal evaluation due to motion artifact. No displaced fracture or traumatic subluxation. Reviewed by: Esteban Celestin on 11/28/2022 2:00 PM PDT Approved by: Esteban Celestin on 11/28/2022 2:00 PM PDT Station ID: [id number]
--- NOTE | 2022-11-28 14:05 | CT Report ---
PROCEDURE: HEAD WO INDICATIONS: AMS; on eliquis; fall 2 days ago TECHNIQUE: Noncontrast 4.5 mm thick angled axial sections acquired from the foramen magnum to the vertex. For r adiation dose reduction, the following was used: automated exposure control, adjustment of mA and/or kV according to patient size. COMPARISON: None. FINDINGS: Image quality: Excellent. CSF spaces: Basal cisterns are patent. No extra-axial fluid collections. Ventricles are normal in size and shape. Brain: No midline shift. Trace intraparenchymal focus of hyperattenuation in the right temporal lobe (series 2, image 22 and series 5, image 31). Parker-white matter interface is normal. Leukoaraiosis, commonly caused by chronic small vessel ischemic disease. Age-related volume loss. Skull and face: Calvarium and visualized facial bones are intact, without suspicious lesions. Sinuses: Visualized sinuses and mastoids are clear. IMPRESSION: Trace intraparenchymal focus of hyperattenuation within the right temporal lobe. Findings probably re present a vascular calcification, less likely focus of hemorrhage given location. Consider 4-6 hour f ollow-up with CT. Reviewed by: Esteban Celestin on 11/28/2022 2:04 PM PDT Approved by: Esteban Celestin on 11/28/2022 2:04 PM PDT Station ID: [id number]
--- NOTE | 2022-11-28 14:11 | HISTORY & PHYSICAL EXAMINATION ---
Chief Complaint - Chief Complaint Chief Complaint: obtundation History of Present Illness - Admitted From Admitted From:: home via EMS - History Obtained From Records Reviewed: [facility] and clinic EMR History obtained from: Amy ZHANG Exam Limitations: patient unable to speak - History of Present Illness HPI Comment/Other: This is a lady who is followed in her local clinics by Carleen Gonzalez. The patient has a past medical history of hypertension, atrial fibrillation, severe COPD. Her cardiac history consist of atrial fibrillation and PVCs. She lives alone but has a son that checks in on her. She has chronic dyspnea with easy fatigability. Just walking in her room in her house tires her out. She has occasional lightheadedness, mainly from getting up and walking across room. But she has had no syncope. Sometimes her dyspnea occurs at rest and she will have to wake up because she is gasping for air. She smokes 1 pack/day. She was last physically seen by her son on Saturday, 2 days ago. She told him that she had fallen 2 days previously. She is on Eliquis. He noted that she had possibly some left-sided body weakness but she said she was fine and did not want to do anything about it. He then saw her again today and she was very obtunded, nonverbal, left-sided deficit and contracture of the left arm. So he called an ambulance and she was brought into the hospital. In the emergency room temperature was 36.3. Her heart rate was 109. Blood pressure 144/64. She is breathing at 22 breaths a minute and 99% saturated on nasal cannula. Initially the ER provider thought the patient was having a stroke and they did a CT of the head. CT of the head was negative for acute changes. However she had trace intraparenchymal focus of hyperattenuation within the right temporal lobe suggesting vascular calcification. But because it was so subtle the recommending a repeat CT in 4 to 6 hours. C-spine showed arthritis but no fractures. A chest x-ray showed mild interstitial edema but no pneumonia or masses. Initially she was nonverbal. The ER provider continue to evaluate the cause of her obtundation and found her to have a carbon dioxide that was elevated at 41. Baseline is usually 35 for her. BUN was 37. Phosphorus is high at 5.9. Liver enzymes are elevated at AST 80, ALT 138, alk phos 171. Sodium and potassium are normal. White cell count was elevated at 13.1. She has chronically elevated white cell count in the EMR. Hemoglobin is 15, hematocrit is 51. Her hematocrit has been steadily rising since 2013. In 2012 she was 41, in 2019 she was 46. Considered high and abnormal by 1999 2848. And then today 51. INR is 1. Bloodon a nonrebreather 15 L had her with a pH of 7.10, PCO2, PO2 223, bicarb 48, and total base excess 9.1. On the basis of this, the ER provider postulated the diagnosis was not a stroke but possibly CO2 retention and end-stage COPD patient. As such she was put on a nonrebreather and within 5 minutes woke up. The patient was not happy. She states that she is a DO NOT RESUSCITATE, and does not want things done to her. She feels like "you are taking away my dignity". But the ER provider was able to convince her to at least do BiPAP t emporarily for us to get her PCO2 down. She was transferred to the ICU. Again nonverbal. Once BiPAP was placed she is awake and alert. Again lamenting that we are doing all these things to her. History - Past Medical History Cardiovascular: reports: Hypertension, High cholesterol, Atrial fibrillation (Echo . Nml LVEF 55-60%. RVSP 36 mmHg, RA 3 mmHg. Zio 06/27 Afib 107-166. Intermittent. Low afib burden. CHADS 3. Declined anticog, accepted risk of CVA and rate controlled w dilt and lopressor. ), Arrhythmia (PACs), Other (Chronic pedal edema) Respiratory: reports: COPD (Severe. FEV1 27%), Emphysema, Shortness of breath Neuro: reports: None Endocrine/Autoimmune: reports: None GI: reports: None SHAGGER: reports: None, Other () : reports: None HEENT: reports: Other (Allergic rhinitis) Psych: reports: Anxiety Musculoskeletal: reports: Osteoarthritis (Not a candidate for surgery due to MATERIALS DIRECTOR D and cardiac disease), Rheumatoid arthritis, Other (Used to take long-term opioids for knee pain. Does not anymore) Derm: reports: Psoriasis Other Past Medical History: Alopecia. Chronic leukocytosis.. Declines work-up for that. - Past Surgical History General: reports: Appendectomy (age 22) /SHAGGER: reports: Hysterectomy (RUSSELL w BSO) - Family & Social History Family History Comment/Other: Father with lung cancer age 70. Mother age 65 with congestive heart failure. No siblings, she was an only child. 2 Sons are healthy Living arrangement: At home Living Situation: Alone Social History Notes: 1 pack/day smoker and started smoking in 1963. Continues to smoke. No history of alcohol abuse. Lives alone. . He's been gone for ~6 years. Even though she is severely short of breath still maintains relative independence with dressing herself and feeding herself. Lives alone. She thinks her children are now starting to avoid her because she believes them too much.She also does not like her son significant other, [id number]. Meds/Allgy - Home Medications Home Medications: Ambulatory Orders Medication Instructions Recorded Confirmed Apixaban [Eliquis] 5 mg PO BID 11/28/22 Metoprolol/Hydrochlorothiazide 100 mg PO BID 11/28/22 [Metoprolol-Hctz 100-50 mg Tab] dilTIAZem HCL [Diltiazem 24Hr ER] 240 mg PO DAILY 11/28/22 - Allergies Allergies/Adverse Reactions: Allergies Allergy/AdvReac Type Severity Reaction Status Date / Time No Known Drug Allergies Allergy Verified 11/28/22 12:06 Review of Systems - Constitutional Constitutional: reports: Fatigue, Fever, Chills, Weakness, Poor appetite - Eyes Eyes: reports: Other (Due to get cataracts in the next few weeks. He is using eyedrops.) - Ears, Nose & Throat Ears, Nose & Throat: reports: Nasal discharge, Nasal congestion, Postnasal drainage, Hoarseness. denies: Ear pain, Hearing loss, Hearing aids, Tinnitus - Cardiovascular Cariovascular: reports: Exertional dyspnea, Decr. exercise tolerance, Orthopnea - Respiratory Respiratory: reports: Cough, Sputum production (Has changed in the last few days. Different color, and more frequent), SOB at rest, SOB with exertion - Gastrointestinal Gastrointestinal: denies: Abdominal pain, Abdominal distention, Constipation, Diarrhea - Genitourinary Genitourinary: reports: Frequency, Urgency (Right now. Even with the [place] and she insist on trying to get on the toilet to pee). denies: Dysuria - Musculoskeletal Musculoskeletal: reports: Muscle pain, Back pain, Muscle aches, Joint pain (Joint pain is chronic. Usually takes half of an oxycodone once every 3 months when it is bad) - Integumentary Integumentary: reports: Rash (But she cannot tell me if it is worse, new, or describe it. Cannot tell me where there is) - Neurological Neurological: reports: General weakness, Memory problems (Possibly.). denies: Focal weakness, Headache, Dizziness, Numbness, Pre-existing deficit - Psychiatric Psychiatric: denies: Depression, Anxiety, Suicidal - Endocrine Endocrine: denies: Polyuria, Polydypsia, Polyphagia, Intolerance to cold - Hematologic/Lymphatic Hematologic/Lymphatic: reports: Bruising. denies: Anemia, Petechiae, Blood clots Prior Level of Functionality: She says that she still drives a car, feeds herself, does her own groceries, dresses herself and takes care of her house in spite of her severe dyspnea on exertion. She states she does not use any durable medical equipment including oxygen Exam - Vital Signs Reviewed Vital Signs: Yes Vital Signs: Vital Signs x48h Temp Pulse Resp BP Pulse Ox O2 Flow Rate 11/28/22 14:08 67 22 135/62 H 96 11/28/22 13:25 68 21 148/62 H 100 15 11/28/22 13:10 69 77 L 4 11/28/22 13:05 70 24 132/53 H 98 4 11/28/22 12:05 75 11/28/22 11:55 36.3 C L 109 H 22 144/64 H 99 - Physical Exam General Appearance: positive: Alert, Mild distress, Other (5 feet 4 inches, 61 kg. Constant blowing of her nose, gurgling and coughing bringing up phlegm) Eyes Bilateral: positive: PERRL, EOMI, Other (Sclera appears to be edematous with cornea embedded. Read. Clear coryza) ENT: positive: No signs of dehydration Neck: positive: No JVD Respiratory: positive: Rhonchi (Copious, wet, gurgly), Other (No wheezing but severely prolonged and exhalation phase. Mild tachypnea with speaking to me and gesticulations but no use of accessory muscles. Able to carry on and almost com plete conversation) Cardiovascular: positive: Regular rate & rhythm, Tachycardia Peripheral Pulses: positive: 0 Abdomen: positive: Non-tender, No organomegaly, Nml bowel sounds, No distention Skin: positive: Dry, Pallor Extremities: positive: Full ROM, Pedal edema (Thick ankles. No pitting), Other (Feet ice cold but there is no clubbing or cyanosis) Neurologic/Psychiatric: positive: Oriented x3, CN's nml (2-12), Motor nml (In the ER there is a possibility of left-sided weakness, but she is gesticulating. She is using her hands to grab tissue and blow her nose. No focal deficits.). negative: Facial droop, Slurred/abnml speech Conclusion/Plan - Problem List (1) AMS (altered mental status) Conclusion/Plan: The question of whether she has had a stroke or if this is strictly hypercapnia was still not completely worked out yet. On my exam there is no evidence of focal weakness or unilateral neglect. In addition, this lady does not want an aggressive work-up. She has a known history of paroxysmal atrial fibrillation that is intermittent. She has refused anticoagulation in the past for risk of stroke. She is responding to the BiPAP or giving her and as such I will place her in ICU, start BiPAP protocol. At least keep her on BiPAP overnight until tomorrow morning to see how she does.There is no evidence of pneumonia, UTI. She is not having an RI. If she has had a stroke she does not want treatment. She is made it very clear in the clinic record and in the emergency room that she does not want treatment. She is a DO NOT RESUSCITATE.Please see brief advance care planning conversation under separate dictation Qualifiers: Altered mental status type: somnolence Qualified Code(s): R40.0 - Somnolence (2) Acute and chronic respiratory failure with hypercapnia Conclusion/Plan: I am not clear, in reviewing the medical record, if this patient is on oxygen at home or not. However she is clearly hypercapnic, and with a long-term history of end-stage COPD. She has made it very clear that she does not want aggressive measures. She is lamenting that she is even here.In looking at her CBC, hematocrit is quite high. She is not on home oxygen. She is not felt to have chronic hypoxemia but the elevation of her hematocrit indicates that there may be some level hypoxia that she is not aware of. Plan: BiPAP temporarily Solu-Medrol 40 mg IV push Q8 DuoNeb every 6 hours on a regular schedule I thought that I was not can to give empiric antibiotic therapy on the basis of a clear chest x-ray, but she has gurgling, and a subjective description of fevers and change in phlegm color. As such I will give her Levaquin IV. Sit down and talk to her about her advance care planning. Not appropriate to do so right now. But if she is truly of a philosophical bent to focus on palliative care, I would think that she would be a candidate for hospice. Hospice criteria request hypoxemia at rest on room air. Activity severely limited by dyspnea and/or weakness. Hospitalizations for respiratory infection or respiratory failure. Unacceptable quality of life for the patient. Weight loss. Right heart failure. Symptomatic pulmonary hypertension. Or increasing oxygen dependency. I think she qualifies on the basis of quality of life, and severe dyspnea. (3) Paroxysmal atrial fibrillation Conclusion/Plan: She sees cardiology on a regular basis. There is cleared documentation in her office chart that she is aware of her risk of stroke. She has declined anticoagulation. She only wishes rate control. She is on verapamil and metoprolol for this. Since she is intermittently obtunded, I do not think that she should take oral medications at this time. Risk of aspiration. So I will be holding off on her oral medications and giving her Lopressor on a regular dose of 5 mg IV push every 6 hours. Hold for a pulse less than 60. I will also continue to honor her decision of no anticoagulation. (4) Leukocytosis, unspecified Conclusion/Plan: This has been present for several years. With her most recent visit to her PCP there was possibility of evaluation. It is not clearly stated that she was going to be referred to oncology or not. There is no description of B symptoms. There is no anemia. At this time the most time to ask as her pathology evaluation of her peripheral smear. Qualifiers: Leukocytosis type: unspecified Qualified Code(s): D72.829 - Elevated white blood cell count, unspecified - Lab Results Lab results reviewed: Yes Fish Bones: 11/28/22 12:20 11/28/22 12:15 - EKG Results EKG Interpreted Independently: No EKG Comparison: Unchanged from prior EKG Core Measures - Anticipated LOS I expect patient to be DC'd or transferred within 96 hours.: Yes - DVT/VTE - Prophylaxis VTE/DVT Prophylaxis med ordered at admit?: Yes
[2022-11-28] MEDS: SODIUM CHLORIDE 0.9% 1,000 ML IV SCH (14:46)
[2022-11-28] MEDS: methylPREDNISolone SUCCINATE 40 MG/ML VIAL IVP SCH ×3 (15:08→23:32)
[2022-11-28] MEDS: PANTOPRAZOLE 40 MG VIAL IVP SCH (15:08)
[2022-11-28 16:06] LABS: MAGNESIUM 2.3 mg/dL (1.7-2.3); PHOSPHORUS 5.9 mg/dL (2.5-5.0)
[2022-11-28] MEDS: SODIUM CHLORIDE FLUSH 0.9% 10 ML SYRINGE IVP SCH ×2 (18:52→23:33)
[2022-11-28] MEDS: METOPROLOL 5 MG/5 ML VIAL IVP SCH (18:52)
[2022-11-28] MEDS: IPRATROPIUM/ALBUTEROL 3 ML NEB INH SCH (19:02)
[2022-11-28] MEDS ORDERED: levoFLOXacin 750 MG/150 ML 750 MG/150 ML BAG IV SCH (20:00)
--- NOTE | 2022-11-28 20:03 | ADVANCE CARE PLANNING NOTE ---
Advance Care Planning - Planning Encounter Date: 11/28/22 Time: 20:06 Purpose: Established CODE STATUS and care goals Parties in Attendance: Patient, hospitalist, [employer] [facility] [employer] PA student, and nurse Decisional Capacity of the Patient: Currently alert, oriented to person place and situation. - Diagnosis for Encounter (2) Acute and chronic respiratory failure with hypercapnia Summary: FEV1 is 27%. Still continues to smoke a pack a day. - Encounter Subjective/Patient's Story: 77-year-old, smoker, FEV1 27% with chronic dyspnea and severe COPD. Last seen Saturday, 2 days ago and already having some left body weakness and slurred speech. But she refused to come in and son left her alone. Rechecked on her today and she was obtunded, nonverbal with an apparent left-sided deficit and contracture left arm so brought in. In the ER she has severe respiratory failure with a PCO2 in the 150. CT of the head is negative for stroke. Put on BiPAP and much more awake, no left-sided deficit. I think this is all COPD exacerbation. Very angry that her son called an ambulance. She is a firm, firm DO NOT RESUSCITATE, DO NOT INTUBATE, and wants minimal intervention. However she agrees to ICU with BiPAP. Agrees to antibiotics. She says that she is a strong compartmentalize her. She is not getting along with her 2 kids right now because she "bullies them". So they have been avoiding her. It also does not help that she does not like the significant others of her sons. But she has been making it very clear to them for the last few years and especially the last few weeks that she wants to be left alone when it is time to . If they come over to her house and find her unconscious on the floor to walk away. Come back in a few hours when she is . She was very explicit in telling them this and describing the scenario. So to find out that this is exactly what happened, found down, and they called an ambulance and brought her to the ER has made her very unhappy. She states that she has had a good life. Her 's been gone for a few years and she misses him tremendously. She is still able to be independent enough to live alone but recognizes the and is coming soon because of severe dyspnea on exertion. She really just wants to go to sleep and because she recognizes that her body is failing. When I asked her about CODE STATUS she repeats that she is a DO NOT RESUSCITATE, DO NOT INTUBATE. When I asked her how she sees the incoming, she says dying at home from respiratory failure. When I asked her how the logistics will occur she says that she hopes that her sons will help. When I mention hospice she says that she is very open to that. If that will help her achieve her goals she would like to be evaluated by them. Her goal is to go back home. She designates her son Alphonse as her DPOA Objective/Medical Story: This is a lady who is followed in her local clinics by Carleen Gonzalez. The patient has a past medical history of hypertension, atrial fibrillation, severe COPD. Her cardiac history consist of atrial fibrillation and PVCs. She lives alone but has a son that checks in on her. She has chronic dyspnea with easy fatigability. Just walking in her room in her house tires her out. She has occasional lightheadedness, mainly from getting up and walking across room. But she has had no syncope. Sometimes her dyspnea occurs at rest and she will have to wake up because she is gasping for air. She smokes 1 pack/day. She was last physically seen by her son on Saturday, 2 days ago. She told him that she had fallen 2 days previously. She is on Eliquis. He noted that she had possibly some left-sided body weakness but she said she was fine and did not want to do anything about it. He then saw her again today and she was very obtunded, nonverbal, left-sided deficit and contracture of the left arm. So he called an ambulance and she was brought into the hospital. In the emergency room temperature was 36.3. Her heart rate was 109. Blood pressure 144/64. She is breathing at 22 breaths a minute and 99% saturated on nasal cannula. Initially the ER provider thought the patient was having a stroke and they did a CT of the head. CT of the head was negative for acute changes. However she had trace intraparenchymal focus of hyperattenuation within the right temporal lobe suggesting vascular calcification. But because it was so subtle the recommending a repeat CT in 4 to 6 hours. C-spine showed arthritis but no fractures. A chest x-ray showed mild interstitial edema but no pneumonia or masses. Initially she was nonverbal. The ER provider continue to evaluate the cause of her obtundation and found her to have a carbon dioxide that was elevated at 41. Baseline is usually 35 for her. BUN was 37. Phosphorus is high at 5.9. Liver enzymes are elevated at AST 80, ALT 138, alk phos 171. Sodium and potassium are normal. White cell count was elevated at 13.1. She has chronically elevated white cell count in the EMR. Hemoglobin is 15, hematocrit is 51. Her hematocrit has been steadily rising since 2013. In 2012 she was 41, in 2019 she was 46. . And then today 51. INR is 1. Bloodon a nonrebreather 15 L had her with a pH of 7.10, PCO2, PO2 223, bicarb 48, and total base excess 9.1. On the basis of this, the ER provider postulated the diagnosis was not a stroke but possibly CO2 retention and end-stage COPD patient. As such she was put on a nonrebreather and within 5 minutes woke up. The patient was not happy. She states that she is a DO NOT RESUSCITATE, and does not want things done to her. She feels like "you are taking away my dignity". But the ER provider was able to convince her to at least do BiPAP temporarily for us to get her PCO2 down. She was transferred to the ICU. Again nonverbal. Once BiPAP was placed she is awake and alert. Again lamenting that we are doing all these things to her. Goals of Care: To return to her home after this acute stay, and to continue to stay there without any hospitalizations or ambulance calls. But she is willing to do BiPAP, steroids and antibiotics at this time until she can feel better and make arrangements with hospice and speak to her son Plan: Get her through this current acute episode of acute exacerbation of severe end- stage COPD. I will give her empiric steroids, antibiotics, nebulizers. Long- acting bronchodilator. I will also contact hospice. Then return to home Code Status: Do Not Attempt Resuscitation Time spent on advance care plannin minutes
[2022-11-28] MEDS: CHLORHEXIDINE GLUCONATE 15 ML UDC PO SCH (21:15)
[2022-11-28] MEDS: LORazepam 2 MG/ML VIAL IVP PRN (23:32)
[2022-11-29] MEDS: METOPROLOL 5 MG/5 ML VIAL IVP SCH ×4 (00:03→17:52)
[2022-11-29] MEDS: IPRATROPIUM/ALBUTEROL 3 ML NEB INH SCH ×4 (00:22→17:33)
[2022-11-29] MEDS: SODIUM CHLORIDE 0.9% 1,000 ML IV SCH ×2 (04:15→17:37)
[2022-11-29 04:43] LABS: CALCIUM, IONIZED 1.06 mmol/L (1.15-1.33); VBG PH 7.29 (7.31-7.41)
[2022-11-29 04:52] LABS: BASOPHILS % (AUTO) 0.2 %; HCT - HEMATOCRIT 45.1 % (37.0-47.0); HGB - HEMOGLOBIN 13.2 g/dL (12.0-16.0); LYMPHOCYTES # (AUTO) 0.3 10^3/uL (1.5-3.5); MEAN CORPUSCULAR HEMOGLOBIN 31.9 pg (27.0-31.0); MEAN CORPUSCULAR HGB CONC 29.3 g/dL (32.0-36.0); MEAN CORPUSCULAR VOLUME 108.9 fL (81.0-99.0); MEAN PLATELET VOLUME 10.4 fL (7.9-10.8); MONOCYTES # (AUTO) 0.5 10^3/uL (0.0-1.0); MONOCYTES % (AUTO) 4.9 %; NEUTROPHILS # (AUTO) 9.7 10^3/uL (1.5-6.6); NEUTROPHILS % (AUTO) 89.9 %; NUCLEATED RED BLOOD CELLS AUTO 0.9 /100WBC; PLT - PLATELET COUNT 296 10^3/uL (130-450); RED BLOOD COUNT 4.14 10^6/uL (4.20-5.40); RED CELL DISTRIBUTION WIDTH 13.7 % (12.0-15.0); WHITE BLOOD COUNT 10.8 x10^3/uL (4.8-10.8)
[2022-11-29 05:01] LABS: ALBUMIN 3.7 g/dL (3.2-5.5); PHOSPHORUS 4.8 mg/dL (2.5-5.0)
[2022-11-29 05:03] LABS: ALBUMIN/GLOBULIN RATIO 1.6 (1.0-2.2); BILIRUBIN,TOTAL 0.3 mg/dL (0.2-1.0); CALCIUM 8.7 mg/dL (8.5-10.3); CREATININE 0.7 mg/dL (0.6-1.3); POTASSIUM 3.6 mmol/L (3.5-4.5)
[2022-11-29] MEDS ORDERED: CALCIUM GLUC 1,000MG/50ML-NACL 1,000 MG/50 ML BAG IV ONE (05:07)
[2022-11-29] MEDS: methylPREDNISolone SUCCINATE 40 MG/ML VIAL IVP SCH ×3 (06:06→17:36)
[2022-11-29 06:15] LABS: ABG BASE EXCESS 12.3 mmol/L (-2.0-3.0); ABG HCO3 45.9 mmol/L (22.0-26.0); ABG PO2 44 mmHg (80-100)
[2022-11-29 06:16] LABS: ABG PH 7.19 (7.35-7.45)
[2022-11-29 06:17] LABS: ABG OXYGEN SATURATION 76 % (94-98); ABG PCO2 122 mmHg (34-45); ABG TCO2 49.7 MMOL/L (21.0-29.0); ALLEN TEST POSITIVE
[2022-11-29 06:18] LABS: ABG RESPIRATORY RATE 12 b/min
[2022-11-29] MEDS: PANTOPRAZOLE 40 MG VIAL IVP SCH (07:28)
[2022-11-29] MEDS: POTASSIUM CHLOR 10 MEQ/100 ML 10 MEQ/100 ML BAG IV SCH ×2 (07:28→08:33)
--- NOTE | 2022-11-29 08:04 | PROVIDER PROGRESS NOTE ---
Progress Note November 29, 2022 3:40 PM. 30 minutes was spent at direct bedside as well as conversation with her son Before I left last night, nursing asked for Ativan to keep the patient comfortable. She just does not like the mask and would alternate between laying quietly and at times pulling at the mask. So I ordered Ativan 0.5 mg IV push every 2 hours as needed. She is only received 1 dose at 2300. Even with BiPAP she is minimally improved. pH is 7.19, PCO2 is 122, PO2 is 44. Bicarbonate is 45. Base excess is 12.3. She is on BiPAP 45% FiO2, 18. Respiratory rate set at 12. But I discussed this with respiratory therapy. He really feels that this was a mixed gas. More venous than arterial. She looked too good on a clinical basis to have such terrible blood gases. So a repeat blood gas was done on nasal cannula, and off BiPAP. A repeat blood gas showed a pH of 7.31, PCO2 81, a PO2 of 39. She is severely clamped down with slightly cyanotic fingers. Part of this may be cyanosis from peripheral vascular disease versus true cyanosis from hypoxemia. She still has a significant base excess of 9.8. Now that she is alert, refusing BiPAP, and PCO2 is down, I have transferred her to [facility] status. Son has been in the room with her this morning. Overnight her heart rate was in the 100 range or less. With the son being in the room and emotional agitation her heart rate is now consistently up above 120 even with the Lopressor 5 mg IV push x1 given at 6 AM. She is still monitor home meds. I had not resumed them last night since she was intermittently encephalopathic and it was not safe to swallow. She is definitely now more awake and able to swallow. I did try and have a conversation with her and her son. Both of them together in the room. Her son Alphonse is the DPOA. But it was a very difficult situation. This woman told me that she is a very harsh individual and she regarded herself as a bully. Her words not mine. So sometimes she has a hard time speaking to her children because they get so angry at her. She does not blame them. She told me this last night, and this afternoon that behavior was evident. She is angry at being here. She reiterates her desire to be comfort measures and keeps on braiding her son for not letting her do that. Her son was very honest and said that he knew his mom's wishes. He even reiterated what she told me which was to leave her on the floor in her home if he found her that way. Under no circumstances was he called EMS. But he said he just could not do it. He did find her down, and he could not bear leaving her on the floor and called EMS. After a 30-minute conversation, in the hallway separate from the patient, the son reiterates all that mom said. Emotionally he is having a hard time acknowledging that this is end-of-life for her. He feels overwhelmed. He wants to honor her wishes about taking her home to with hospice. But at the same time he feels overwhelmed about the actual physical ability to bathe her, feed her, etc. In the end he does wish to take her home with hospice as she wishes. I choice in between hospice of the [place] and would be hospice. He says he would like would be hospice. I strongly encouraged him to hire caregivers. He is very honest and acknowledging how difficult this is going to be for him. Even though he has a sister and 3 other brothers they are not going to come help. His mother has burned her bridges with them and they can no longer speak to her. His partner is a director of graduate medical education at our local [employer] facility so he is looking for some guidance from her as well when he hires caregivers. Active Medications Albuterol/Ipratropium (Ipratropium/Albuterol 3 Ml Neb) 3 ml INH RTQ6H [facility] Last Admin: 11/29/22 05:54 Dose: 3 ml Chlorhexidine Gluconate (Chlorhexidine Gluconate 15 Ml Udc) 15 ml PO BID [facility] Last Admin: 11/28/22 21:15 Dose: 15 ml Enoxaparin Sodium (Enoxaparin 40 Mg/0.4 Ml Syringe) 40 mg SUBQ DAILY [facility] Sodium Chloride (Normal Saline 0.9%) 1,000 mls @ 100 mls/hr IV .Q10H [facility] Last Admin: 11/29/22 04:15 Dose: 100 mls/hr Levofloxacin (Levaquin 750 Mg/150 Ml) 750 mg in 150 mls @ 100 mls/hr IV Q48H [facility] Last Infusion: 11/28/22 21:40 Dose: Infused Lorazepam (Lorazepam 2 Mg/Ml Vial) 0.5 mg IVP Q2H PRN PRN Reason: Anxiety Last Admin: 11/28/22 23:32 Dose: 0.5 mg Methylprednisolone (Methylprednisolone Succinate 40 Mg/Ml Vial) 40 mg IVP Q6HR [facility] Last Admin: 11/29/22 06:06 Dose: 40 mg Metoprolol Tartrate (Metoprolol 5 Mg/5 Ml Vial) 5 mg IVP Q6HR [facility] Last Admin: 11/29/22 06:06 Dose: 5 mg Ondansetron HCl (Ondansetron Odt 4 Mg Tablet) 4 mg TL Q6HR PRN PRN Reason: Nausea / Vomiting Ondansetron HCl (Ondansetron 4 Mg/2 Ml Vial) 4 mg IVP Q6HR PRN PRN Reason: Nausea / Vomiting Pantoprazole Sodium (Pantoprazole 40 Mg Vial) 40 mg IVP QDAC [facility] Last Admin: 11/29/22 07:28 Dose: 40 mg Sodium Chloride (Sodium Chloride Flush 0.9% 10 Ml Syringe) 10 ml IVP 0100,0900,1700 [facility] Last Admin: 11/28/22 23:33 Dose: 10 ml Sodium Chloride (Sodium Chloride Flush 0.9% 10 Ml Syringe) 10 ml IVP PRN PRN PRN Reason: NEEDED PER PROVIDER ORDERS Last Admin: 11/28/22 19:54 Dose: 10 ml Apixaban [Eliquis] 5 mg PO BID 11/28/22 Metoprolol/Hydrochlorothiazide [Metoprolol-Hctz 100-50 mg Tab] 100 mg PO BID 11/28/22 dilTIAZem HCL [Diltiazem 24Hr ER] 240 mg PO DAILY 11/28/22 Exam: She was seen this morning with coarse upper airway sounds, diffuse rhonchi, tachypnea on BiPAP. She is seen again this afternoon and BiPAP mask is off. She has nasal cannula. Sitting up in her room chair on her room on Med Surg since I transferred her out of ICU. Struggling to breathe. Especially when she gets angry and wants to yell at her son, she gets tachypneic and she has use of accessory muscles with difficulty trying to exhale. Shoulders come up with effort. Lips are dry. Cracked. Copious nasal discharge where she has to blow her nose. Gurgling respiration at times. Cachectic elderly female. Temperature 35.8, heart rate is 135. When she gets agitated she gets in the 120s and 130s. When she is not heart rate goes down to 85. Blood pressure 126/73. Respirations 24. She is 84% saturated on 6 L. Hands are very cold. Coarse airway sounds, no wheezing with limited air movement. Abdomen hypoactive bowel sounds. Extremities without edema Alert and oriented to person, place, situation. Losing track of time. During our conversation there are a few moments where she appears to lose track of the conversation completely and get siderailed on her anger, and irritation with her son. Lab: CBC has a white cell count is come down to 10.8. Hemoglobin 13.2. MCV 108. Platelets 296. Chemistry has a sodium that is risen to 147, carbon dioxide is still elevated at 41, anion gap is low at 4.0. BUN is 31, creatinine is improved at 0.7 and she was 1.2. Glucose 123. LFTs are coming down. AST was 80 and now 41. ALT was 138 and now 101. Alk phos was 171 and now 134. Conclusion/Plan - Problem List (1) AMS (altered mental status) Conclusion/Plan: Differential diagnosis was stroke versus hypercapnia as a cause of her obtundation. A repeat CT scan was recommended last night because of the vascular calcifications noted on the head CT. But this patient woke up and was much more interactive once her PCO2 was treated. And now in the context of a patient who wants hospice, I do not think I will get a repeat the CT for stroke. She also would not be able to tolerate an MRI. She is still slightly confused. Perseverating. Getting easily sidetracked. And her PCO2 is still in the 80s as opposed to 140. But my thought processes that she has hypercapnia as the cause of her obtundation. Plan: I expect her mental status to deteriorate once we stopped aggressively treating her. I explained to her son that her PCO2 will continue to climb once. Aggressive pulmonary treatment and she will go back to sleep, go back to being obtunded and most likely pass away. He accepts that. He would like to take her home. He has chosen [facility]. Qualifiers: Altered mental status type: somnolence Qualified Code(s): R40.0 - Somnolence (2) Acute and chronic respiratory failure with hypercapnia Conclusion/Plan: This patient has end-stage COPD with a reduction in quality of life As defined by her. She is severely hypoxemic at rest. Her activity is severely limited by dyspnea and her weakness. She was not on oxygen at home she tells me. Blood gases show a chronic hypercapnia that is definitely worsened. She is on empiric Solu-Medrol, antibiotics. I will continue those while she is in the hospital. She was also continue get DuoNeb. Her son is not asking us to transition her to comfort measures yet. Plan is discharge to Hospice. Once that is in place she can go home. I have strongly encouraged the son to hire some caregivers to help him through this process. It is already contentious difficult relationship. Lots of emotion on board. I told him to make sure he gets plenty of support as he supports his mother. (3) Paroxysmal atrial fibrillation Conclusion/Plan: She sees cardiology on a regular basis. There is cleared documentation in her office chart that she is aware of her risk of stroke. She has declined anticoagulation. She only wishes rate control. At home she is on verapamil and metoprolol for this. those meds have been resumed since she is now up and awake and able to swallow safely with reduced risk of aspiration. (4) Leukocytosis, unspecified Conclusion/Plan: This has been present for several years. With her most recent visit to her PCP there was possibility of evaluation. It is not clearly stated that she was going to be referred to oncology or not. There is no description of B symptoms. There is no anemia. I will no longer asked pathology evaluation of her peripheral smear since we are transitioning her to hospice. Qualifiers: Leukocytosis type: unspecified Qualified Code(s): D72.829 - Elevated white blood cell count, unspecified
[2022-11-29] MEDS ORDERED: diltiaZEM INJ 5 MG/ML VIAL IVP ONE (08:14)
[2022-11-29] MEDS: SODIUM CHLORIDE FLUSH 0.9% 10 ML SYRINGE IVP SCH ×2 (08:24→15:53)
[2022-11-29] MEDS: ENOXAPARIN 40 MG/0.4 ML SYRINGE SUBQ SCH (11:02)
[2022-11-29] MEDS: CHLORHEXIDINE GLUCONATE 15 ML UDC PO SCH ×2 (11:02→20:39)
[2022-11-29 13:08] LABS: ABG BASE EXCESS 9.8 mmol/L (-2.0-3.0); ABG HCO3 39.6 mmol/L (22.0-26.0); ABG PH 7.31 (7.35-7.45)
[2022-11-29 13:09] LABS: ALLEN TEST POSITIVE
[2022-11-29 13:14] LABS: ABG PCO2 81 mmHg (34-45); ABG PO2 39 mmHg (80-100); ABG TCO2 42.1 MMOL/L (21.0-29.0)
[2022-11-29 13:15] LABS: ABG OXYGEN SATURATION 76 % (94-98)
[2022-11-29] MEDS: METOPROLOL TARTRATE 50 MG TABLET PO SCH ×2 (16:03→20:39)
[2022-11-29] MEDS: diltiaZEM CD 240 MG CAPSULE PO SCH (16:03)
[2022-11-29] MEDS: LORazepam 2 MG/ML VIAL IVP PRN (17:36)
--- NOTE | 2022-11-29 21:08 | PROVIDER PROGRESS NOTE ---
Telegraph Repeater Mechanic Note - Telegraph Repeater Mechanic Note Telegraph Repeater Mechanic Note: Called by RN stating "Dx: Acute encephalopathy Patient is agitated, anxious, and is requesting to smoke outside. I was wondering if she can get some nicotine patch? Thank you" Nicotine patch ordered
[2022-11-29] MEDS: NICOTINE 21 MG PATCH TOP SCH (21:40)
[2022-11-30] MEDS: methylPREDNISolone SUCCINATE 40 MG/ML VIAL IVP SCH ×2 (01:45→06:30)
[2022-11-30] MEDS: METOPROLOL 5 MG/5 ML VIAL IVP SCH ×5 (01:45→23:50)
[2022-11-30] MEDS: SODIUM CHLORIDE FLUSH 0.9% 10 ML SYRINGE IVP SCH ×4 (01:46→23:51)
[2022-11-30] MEDS: LORazepam 2 MG/ML VIAL IVP PRN ×3 (02:03→06:51)
[2022-11-30] MEDS: IPRATROPIUM/ALBUTEROL 3 ML NEB INH SCH ×4 (03:11→23:19)
[2022-11-30] MEDS: SODIUM CHLORIDE 0.9% 1,000 ML IV SCH (03:27)
[2022-11-30 04:58] LABS: BASOPHILS % (AUTO) 0.1 %; HCT - HEMATOCRIT 44.6 % (37.0-47.0); HGB - HEMOGLOBIN 13.1 g/dL (12.0-16.0); LYMPHOCYTES # (AUTO) 0.5 10^3/uL (1.5-3.5); LYMPHOCYTES % (AUTO) 3.4 %; MEAN CORPUSCULAR HEMOGLOBIN 31.8 pg (27.0-31.0); MEAN CORPUSCULAR HGB CONC 29.4 g/dL (32.0-36.0); MEAN CORPUSCULAR VOLUME 108.3 fL (81.0-99.0); MEAN PLATELET VOLUME 10.6 fL (7.9-10.8); MONOCYTES # (AUTO) 1.5 10^3/uL (0.0-1.0); MONOCYTES % (AUTO) 10.1 %; NEUTROPHILS # (AUTO) 12.8 10^3/uL (1.5-6.6); NEUTROPHILS % (AUTO) 85.9 %; NRBC ABSOLUTE COUNT (AUTO) 0.08 x10^3/uL; NUCLEATED RED BLOOD CELLS AUTO 0.5 /100WBC; PLT - PLATELET COUNT 257 10^3/uL (130-450); RED BLOOD COUNT 4.12 10^6/uL (4.20-5.40); RED CELL DISTRIBUTION WIDTH 13.8 % (12.0-15.0); WHITE BLOOD COUNT 14.9 x10^3/uL (4.8-10.8)
[2022-11-30 05:05] LABS: CALCIUM, IONIZED 1.14 mmol/L (1.15-1.33); VBG PH 7.301 (7.31-7.41)
[2022-11-30 05:30] LABS: ALBUMIN 3.5 g/dL (3.2-5.5); PHOSPHORUS 3.5 mg/dL (2.5-5.0)
[2022-11-30 05:33] LABS: ALBUMIN/GLOBULIN RATIO 1.6 (1.0-2.2); BILIRUBIN,TOTAL 0.3 mg/dL (0.2-1.0); CALCIUM 8.9 mg/dL (8.5-10.3); CREATININE 0.7 mg/dL (0.6-1.3); POTASSIUM 3.5 mmol/L (3.5-4.5); TOTAL PROTEIN 5.7 g/dL (6.4-8.9)
[2022-11-30 06:09] LABS: HBsAG SCREEN Negative (Negative); HCV AB Non Reactive (Non Reactive); HEPATITIS B CORE IGM AB Negative (Negative)
[2022-11-30] MEDS: PANTOPRAZOLE 40 MG VIAL IVP SCH (06:30)
[2022-11-30] MEDS: CHLORHEXIDINE GLUCONATE 15 ML UDC PO SCH ×2 (08:19→21:18)
[2022-11-30] MEDS: diltiaZEM CD 240 MG CAPSULE PO SCH (08:20)
[2022-11-30] MEDS: METOPROLOL TARTRATE 50 MG TABLET PO SCH ×2 (08:20→21:19)
[2022-11-30] MEDS: ENOXAPARIN 40 MG/0.4 ML SYRINGE SUBQ SCH (08:22)
[2022-11-30] MEDS: NICOTINE 21 MG PATCH TOP SCH (10:23)
[2022-11-30] MEDS ORDERED: ATROPINE 1% OPHTH DROPS 2 ML SL PRN (11:58)
[2022-11-30] MEDS ORDERED: LORazepam 1 MG TABLET PO PRN (11:58)
[2022-11-30] MEDS ORDERED: GLYCOPYRROLATE 1 MG/5 ML VIAL SUBQ PRN (11:58)
--- NOTE | 2022-11-30 19:47 | PROVIDER PROGRESS NOTE ---
Progress Note November 30, 2022 7:45 PM Patient is asking us to transition her to comfort measures. She does not want any more blood draws, vitals, medications. Temperature is 36.8. Blood pressure 140/43. Respirations 28. O2 sat is 75% on 5-1/2 L. Coarse upper airway sounds, getting sleeper and sleep., Faster regular rate and rhythm, and abdomen is soft and nontender Assessment/plan this patient was admitted with altered mental status due to acute on chronic respiratory failure. She is hypoxemic. Dyspneic at rest. Poor quality of life. Decided to transition to hospice. As such I am now going to respect her wishes and stop active treatment. She will be discharged to home tomorrow if she makes it through the night
[2022-11-30] MEDS: MORPHINE SOL 10 MG/0.5 ML ORAL SYRINGE PO PRN (21:57)
[2022-12-01 00:04] VITALS: O2SAT 47
[2022-12-01] MEDS: IPRATROPIUM/ALBUTEROL 3 ML NEB INH SCH (03:19)
[2022-12-01] MEDS: METOPROLOL 5 MG/5 ML VIAL IVP SCH ×2 (05:18→11:47)
[2022-12-01 05:20] VITALS: BP 99/59
[2022-12-01] MEDS: CHLORHEXIDINE GLUCONATE 15 ML UDC PO SCH (08:54)
[2022-12-01] MEDS: METOPROLOL TARTRATE 50 MG TABLET PO SCH (08:54)
[2022-12-01] MEDS: diltiaZEM CD 240 MG CAPSULE PO SCH (09:00)
[2022-12-01] MEDS: NICOTINE 21 MG PATCH TOP SCH (09:00)
[2022-12-01] MEDS: SODIUM CHLORIDE FLUSH 0.9% 10 ML SYRINGE IVP SCH ×2 (09:01→16:39)
[2022-12-01] MEDS: MORPHINE SOL 10 MG/0.5 ML ORAL SYRINGE PO PRN (16:38)
--- NOTE | 2022-12-01 18:39 | PROVIDER PROGRESS NOTE ---
Progress Note December 01, 2022 6:30 PM Patient asked us to transition her to comfort measures yesterday. Son was in agreement with that. She has become less and less responsive. Her son tells me that he has not been able to get her to speak to him since yesterday. When nursing tries to do oral care she even refuses that. We were doing vital signs until this morning. This morning her blood pressure was 99/59. I have stopped those since the patient has been very insistent about comfort measures. She is laying flat on her back, mouth open breathing, no longer responding to voice. But still responding to painful stimuli. Still occasionally uses her hands or arms for purposeful movement such as pulling on a blanket or scratching her face. Coarse upper airway sounds are getting louder and louder. Irregular rate and rhythm. Hypoactive bowel sounds. Skin is still warm to touch. Assessment/plan Admitted with altered mental status due to acute on chronic respiratory failure with hypoxemia. She stated that she has become more more short of breath even at rest. She has determined that the quality of her life is poor enough that she did not want to continue active treatment. She asked to transition to hospice and her son, JUAN DANIEL, wanted to respect his wishes. She will be open to hospice on December 03. Equipment was delivered today to the house. She will stay in the hospital until hospice formally opens her up.
--- NOTE | 2022-12-01 18:54 | PROVIDER PROGRESS NOTE ---
Hospitalist Cross-cover Note - Cross-Cover Note Cross-Cover Note: December 01, 2022 6:50 PM Patient had been gradually becoming colder and colder today. She finally gave her last breath. I examined her for a minute and pupils are fixed and dilated, no spontaneous respiration, and no heartbeat. pronounced at 6:50 PM.
--- NOTE | 2022-12-01 18:54 | Discharge Plan ---
Discharge Plan Problem Reviewed?: Yes Disposition: 20 No Smoking: If you smoke, Please STOP! Call for help.
--- NOTE | 2022-12-01 18:57 | DISCHARGE SUMMARY ---
Discharge Summary Admit Date: 11/28/22 Discharge Date: 12/01/22 Discharging Provider: Melissa Richard MD Primary Care Provider: CYNTHIA Jung Code Status: Do Not Attempt Resuscitation Discharge Disposition: 20 - DIAGNOSES Discharge Diagnoses with Status of Each Condition: 1. Metabolic encephalopathy secondary to #2 2. Acute on chronic respiratory failure with hypercapnia 3. End-stage COPD 4. Paroxysmal atrial fibrillation 5. Leukocytosis unspecified 6. Comfort measures only status - HPI History of Present Illness: This is a lady who is followed in her local clinics by Carleen Gonzalez. The patient has a past medical history of hypertension, atrial fibrillation, severe COPD. Her cardiac history consist of atrial fibrillation and PVCs. She lives alone but has a son that checks in on her. She has chronic dyspnea with easy fatigability. Just walking in her room in her house tires her out. She has occasional lightheadedness, mainly from getting up and walking across room. But she has had no syncope. Sometimes her dyspnea occurs at rest and she will have to wake up because she is gasping for air. She smokes 1 pack/day. She was last physically seen by her son on Saturday, 2 days ago. She told him that she had fallen 2 days previously. She is on Eliquis. He noted that she had possibly some left-sided body weakness but she said she was fine and did not want to do anything about it. He then saw her again today and she was very obtunded, nonverbal, left-sided deficit and contracture of the left arm. So he called an ambulance and she was brought into the hospital. In the emergency room temperature was 36.3. Her heart rate was 109. Blood pressure 144/64. She is breathing at 22 breaths a minute and 99% saturated on nasal cannula. Initially the ER provider thought the patient was having a stroke and they did a CT of the head. CT of the head was negative for acute changes. However she had trace intraparenchymal focus of hyperattenuation within the right temporal lobe suggesting vascular calcification. But because it was so subtle the recommending a repeat CT in 4 to 6 hours. C-spine showed arthritis but no fractures. A chest x-ray showed mild interstitial edema but no pneumonia or masses. Initially she was nonverbal. The ER provider continue to evaluate the cause of her obtundation and found her to have a carbon dioxide that was elevated at 41. Baseline is usually 35 for her. BUN was 37. Phosphorus is high at 5.9. Liver enzymes are elevated at AST 80, ALT 138, alk phos 171. Sodium and potassium are normal. White cell count was elevated at 13.1. She has chronically elevated white cell count in the EMR. Hemoglobin is 15, hematocrit is 51. Her hematocrit has been steadily rising since 2012. In 2012 she was 41, in 2019 she was 46. Considered high and abnormal by 1999 2848. And then today 51. INR is 1. Bloodon a nonrebreather 15 L had her with a pH of 7.10, PCO2, PO2 223, bicarb 48, and total base excess 9.1. On the basis of this, the ER provider postulated the diagnosis was not a stroke but possibly CO2 retention and end-stage COPD patient. As such she was put on a nonrebreather and within 5 minutes woke up. The patient was not happy. She states that she is a DO NOT RESUSCITATE, and does not want things done to her. She feels like "you are taking away my dignity". But the ER provider was able to convince her to at least do BiPAP temporarily for us to get her PCO2 down. She was transferred to the ICU. Again nonverbal. Once BiPAP was placed she is awake and alert. Again lamenting that we are doing all these things to her. History - Past Medical History Cardiovascular: reports: Hypertension, High cholesterol, Atrial fibrillation (Echo . Nml LVEF 55-60%. RVSP 36 mmHg, RA 3 mmHg. Zio 06/27 Afib 107-166. Intermittent. Low afib burden. CHADS 3. Declined anticog, accepted risk of CVA and rate controlled w dilt and lopressor. ), Arrhythmia (PACs), Other (Chronic pedal edema) Respiratory: reports: COPD (Severe. FEV1 27%), Emphysema, Shortness of breath Neuro: reports: None Endocrine/Autoimmune: reports: None GI: reports: None LEGAL EDITOR: reports: None, Other () : reports: None HEENT: reports: Other (Allergic rhinitis) Psych: reports: Anxiety Musculoskeletal: reports: Osteoarthritis (Not a candidate for surgery due to COPD and cardiac disease), Rheumatoid arthritis, Other (Used to take long-term opioids for knee pain. Does not anymore) Derm: reports: Psoriasis Other Past Medical History: Alopecia. Chronic leukocytosis.. Declines work-up for that. - Past Surgical History General: reports: Appendectomy (age 22) /LEGAL EDITOR: reports: Hysterectomy (RUSSELL w BSO) - HOSPITAL COURSE Hospital Course: This wolfgang lady has end-stage COPD with an FEV1 of 27% of normal. She has made it very clear to friends and family that she did not want heroics. She did not want to be admitted to hospital. And she even told her son that if she was ever found down in her house to never call an ambulance and just let her . Her has been gone for many years. She still misses him. Her son did find her down at home, called the ambulance, and she was resuscitated in the emergency room. Severe respiratory failure. She was started on antibiotics, steroids, put on BiPAP in the ICU. When she was awake and alert she made it very clear that she never wanted this done. And demanded to be taken off of all of this "stuff". She asked to be transition to hospice. Son and I had extensive discussions with her about this and she still reiterated her wishes. As such hospice was consul liliana. She was to be discharged to hospice on December 03. The patient asked to be transition to comfort measures and over the course of 24 to 48 hours gradually succumbed. She was pronounced without any pulse, respiration or pressure and had fixed dilated pupils at 6:50 PM December 01. - ALLERGIES Allergies/Adverse Reactions: Allergies Allergy/AdvReac Type Severity Reaction Status Date / Time No Known Drug Allergies Allergy Verified 11/28/22 12:06 - MEDICATIONS Home Medications: Ambulatory Orders Medication Instructions Recorded Confirmed Apixaban [Eliquis] 5 mg PO BID 11/28/22 dilTIAZem HCL [Diltiazem 24Hr ER] 240 mg PO DAILY 11/28/22 11/29/22 Albuterol Sulf [Ventolin Hfa 2 puffs INH Q4HR PRN 11/29/22 11/29/22 Inhaler] Chlorthalidone 50 mg PO DAILY 11/29/22 11/29/22 Losartan Potassium 100 mg PO HS 11/29/22 11/29/22 Metoprolol Succinate 100 mg PO BID 09/21/23 09/21/23 Rosuvastatin Calcium [Crestor] 5 mg PO HS 11/29/22 11/29/22 - LABS Result Diagrams: 11/30/22 04:47 11/30/22 04:47
== END 2022-12-01 18:50 | disposition expired | DRG 189 ==
LOC: ED 11:46 → ICU 14:00 → MS3 11-29 14:48
PROVIDERS: ADMIT Specialist; ATTEND Specialist
DX: R41.82 Altered mental status, unspecified (principal); I48.91 Unspecified atrial fibrillation; J96.22 Acute and chronic respiratory failure with hypercapnia; J44.9 Chronic obstructive pulmonary disease, unspecified; M47.812 Spondylosis without myelopathy or radiculopathy, cervical region; I50.9 Heart failure, unspecified; E78.00 Pure hypercholesterolemia, unspecified; D72.829 Elevated white blood cell count, unspecified; F17.200 Nicotine dependence, unspecified, uncomplicated; Z91.81 History of falling; I11.0 Hypertensive heart disease with heart failure; I50.810 Right heart failure, unspecified; I27.20 Pulmonary hypertension, unspecified; I48.0 Paroxysmal atrial fibrillation; R40.0 Somnolence; Z51.5 Encounter for palliative care; Z66 Do not resuscitate; Z79.01 Long term (current) use of anticoagulants; Z79.899 Other long term (current) drug therapy
CPT/HCPCS: 36415; 36600; 70450; 71045; 72125; 80053; 80074; 80306; 81001; 82330; 82803; 83605; 83690; 83735; 84100; 85025; 85610; 87150; 93005; 94640; 94660; 99285; A9270; J1650; J2060; 81003; 87086